=== PATIENT | male | born 1970 | race African-American/Black ===

== ENCOUNTER 2023-01-25 10:08 | Emergency (ER) | payer MEDICAID, SELFPAY ==
--- NOTE | ~2023-01-25 | XR_ITS ---
EXAMINATION: XR LUMBOSACRAL SPINE CLINICAL INFORMATION: Status post fall COMPARISON: None available. TECHNIQUE: Three views of the lumbosacral spine. FINDINGS: 5 nonrib-bearing lumbar-type vertebral bodies. No acute visible fracture or dislocation. Straightening of the normal lumbar lordosis which may be secondary to patient positioning versus muscle spasm. Vertebral body heights and disc spaces are maintained. Posterior elements are intact. Paraspinal soft tissues are unremarkable. Bowel gas is unremarkable. XR/XR lumbar spine 2-3V IMPRESSION: 1. No acute visible fracture or dislocation. 2. Straightening of the normal lumbar lordosis which may be secondary to patient positioning versus muscle spasm.
[2023-01-25 10:16] VITALS: BP 150/102; PULSE 72; RESP 18; TEMP 36.6; O2SAT 98; BMI 30.7
--- NOTE | 2023-01-25 10:22 | ED.BACK ---
HPI - Back Pain/Injury General Chief Complaint: Back Pain/Injury Stated Complaint: fell on back / cold 3 weeks Time Seen by Provider: 01/25/23 10:22 Source: patient Mode of arrival: ambulatory Limitations: no limitations History of Present Illness HPI Narrative: 52 yo male presenting to the ER for evaluation of lower back pain after he slipped and fell on a wet floor 3 days ago. He states he fell backward onto his lower back and then hit his head on the floor. No LOC. He is not on blood thinners. He has had a sore lower back since. Today when he went to get out of bed the pain worsened so he came to the ER for further evaluation. Pain is across the entire lower back, does not radiate. No weakness, numbness, tingling into the legs. No bowel or bladder issues. He also reports for the last 3 weeks he has had URI symptoms that have been getting worse. He reports nasal and chest congestion, mild cough, ear pain w/ decreased hearing in the right ear. No fever, chills, N/V/D, abdominal pain, chest pain, SOB. MD elicited complaint: back injury and fall Pertinent past history: prior back pain and recent trauma Onset (ago): day(s) Timing: progressively worsening Severity: moderate Similar Symptoms Previously: Yes Quality: aching Location: lumbar spine, right lower back and left lower back Radiation: none Exacerbating factors: movement Relieving factors: supine Context: fall Associated symptoms: denies other symptoms Work related injury: No Related Data Previous Rx's Medication Instructions Recorded amoxicillin 875 mg-potassium 1 tab PO BID #14 tabs 01/25/23 clavulanate 125 mg tablet cyclobenzaprine 10 mg tablet 10 mg PO TID PRN muscle spasm #14 01/25/23 tabs ibuprofen 600 mg tablet 600 mg PO Q8H PRN fever or pain 01/25/23 #14 tabs lidocaine 5 % topical patch 1 patch topical DAILY #15 ea 01/25/23 Allergies Allergy/AdvReac Type Severity Reaction Status Date / Time No Known Allergies Allergy Verified 01/25/23 10:15 Review of Systems Review of Systems: Yes all other systems are reviewed and are negative PMFSH Social History Social History Advance Directives: No Advance Directives Information Provided: Yes Physical Exam Vital Signs: Vital Signs: Last Vital Signs Temp 98 F 01/25/23 10:16 Pulse 72 01/25/23 10:16 Resp 18 01/25/23 10:16 BP 150/102 H 01/25/23 10:16 Pulse Ox 98 01/25/23 10:16 O2 Del Method Room Air 01/25/23 10:16 BMI result Body Mass Index 30.7 Appearance: Alert. Oriented X3. No acute distress. Head: normocephalic, atraumatic. Eyes: Pupils equal, round and reactive to light. ENT: Pharynx normal. No tonsillar swelling or exudate. Right EAC mildly erythematous w/ bulging and erythema of the right TM. left EAC and TM are normal Neck: Normal inspection. Neck supple. CVS: Normal heart rate and rhythm. Pulses normal. Respiratory: No respiratory distress. Breath sounds normal. Abdomen: Soft and nontender. +BS x4 Back: normal inspection, tenderness of the upper lumbar area bilaterally with midline tenderness. normal flexion w/ pain upon lateral rotation Skin: Skin warm and dry. Normal skin color. Normal skin turgor. No rashes. Extremities: No lower extremity edema. No joint swelling. Neuro/psych: Oriented X 3. No motor deficit. No sensory deficit. CN II-XII intact. Normal speech and cognition. steady gait Medical Decision Making Medical Decision Making [facility] Narrative: 52 yo male presenting w/ low back pain s/p fall 3 days. no red flag symptoms of LBP. XR lumbar spine without fx. mild straightening c/w muscle spasm. will treat accordingly exam is c/w AOM on the right. covid and flu negative. VSS and exam is otherwise negative. Differential Diagnosis Differential Diagnoses: The differential diagnosis associated with the presentation includes Inflammatory disorders, malignancy, trauma, osteoporosis, nerve root compression, radiculopathy, plexopathy, degenerative disc disease, disc herniation, spinal stenosis, sacroiliac joint dysfunction, facet joint injury, and less likely infection?like abscess or diskitis strep, covid, flu, rsv, other viral syndrome, bronchitis, pneumonia, AOM, otitis externa, seasonal allergies Lab Data [facility] Lab Attestation statement: I reviewed the patient's lab results. Labs: Lab Results 01/25/23 Range/Units 10:31 COVID-19 ([facility]) Negative (Negative) COVID-19 Clin Com See Note Influenza Type A ([facility]) Negative (Negative) Influenza Type B ([facility]ER) Negative (Negative) Influenza A & B Note See Note Prescription Management I considered prescription management with: Pain Medication and Antibiotic Critical Care Time Critical Care Time Critical Care Time: No Discharge Plan Discharge Clinical Impression: Strain of lumbar region Qualifiers: Encounter type: initial encounter Qualified Code(s): S39.012A - Strain of muscle, fascia and tendon of lower back, initial encounter Acute ear infection Qualifiers: Laterality: right Qualified Code(s): H66.91 - Otitis media, unspecified, right ear Patient Disposition: Home, Self-Care Instructions: Ear Infection (ED), Low Back Strain (ED), Lower Back Exercises (ED) Additional Instructions: Your x-ray today did not show any broken bones. Your pain is most likely due to muscle strain and spasm. No bending, lifting or twisting. Use ice several times per day for 20 minutes at a time for the next 48 hours and then change to heat. Take medications as prescribed to help with pain and discomfort. Follow up with your Primary Care Doctor this week. If your pain worsens, if you develop new numbness, tingling, weakness, loss of function or incontinence call 911 or come back to the ER right away for evaluation. You tested negative for COVID and Flu. Your exam is consistent with an ear infection on the right Take the prescribed antibiotics as directed, complete the entire course and do not miss any doses Prescriptions: New cyclobenzaprine 10 mg tablet 10 mg PO TID PRN (Reason: muscle spasm) Qty: 14 0RF ibuprofen 600 mg tablet 600 mg PO Q8H PRN (Reason: fever or pain) Qty: 14 0RF lidocaine 5 % adhesive patch,medicated 1 patch topical DAILY Qty: 15 0RF Rx Instructions: leave on most painful area for up to 12 hrs amoxicillin-pot clavulanate 875-125 mg tablet 1 tab PO BID Qty: 14 0RF Interventions: ED Discharge Assessment Last Done: 01/25/23 11:56 Discharge Date/Time: 01/25/23 11:56
[2023-01-25 10:59] LABS: IDNOW Serial# 9DB6401D; Influenza A Negative (Negative); Influenza B2 Negative (Negative)
[2023-01-25 11:00] LABS: COVID-19 Test Negative (Negative); IDNOW Serial# BCCEAD1C
== END 2023-01-25 11:56 | disposition home or self-care (01) ==
PROVIDERS: Physician Assistant; Emergency Provider Emergency Medicine
DX: S39.012A Strain of muscle, fascia and tendon of lower back, initial encounter (principal); H66.91 Otitis media, unspecified, right ear; W01.0XXA Fall on same level from slipping, tripping and stumbling without subsequent striking against object, initial encounter; Y93.9 Activity, unspecified; Y92.9 Unspecified place or not applicable; Y99.9 Unspecified external cause status; Z11.52 Encounter for screening for COVID-19; Z20.822 Contact with and (suspected) exposure to COVID-19
CPT/HCPCS: 72100; 87502; 87635; 99283